=== PATIENT | female | born 1945 | race Caucasian/White ===

== ENCOUNTER → 2017-03-26 | Outpatient (CLI) | payer OTHER ==
[~2017-03-26] MED LIST: ANAS1TAB59 PO; FLUO20CA35 PO; LEVO75TA5 PO; LISI10TA PO; MULT-506 PO; PROB1CAP41 PO; ROSU5TAB PO
[2017-03-26 13:20] VITALS: BP 111/74; PULSE 82; TEMP 36.6; O2SAT 95
--- NOTE | 2017-03-26 14:46 | Radiation Oncology Follow-Up ---
Radiation Oncology Follow-Up Date of Visit Mar 26, 2017. 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 Coleman presented with an abnormal mammogram on 03/23/2015 which showed calcifications in the right breast at 12 o'clock position which has increased compared to the previous examinations. She underwent a unilateral right diagnostic mammogram with ultrasound on 04/04/2015 which did show heterogeneously dense right breast tissue. Spot magnification did show a small 5 mm group of predominantly punctate calcifications in the 12 o'clock position. 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 Tumor was estrogen receptor positive and progesterone receptor positive. The patient was seen by Dr. Angela Keith who recommended lumpectomy which was completed on 05/16/2015. The lumpectomy revealed invasive ductal carcinoma that was histologically grade 2 and measured 8 mm in greatest dimension. The surgical margins for invasive carcinoma were 3 mm from the anterior inferior resection margin and all of the margins were negative for invasive carcinoma. There was also noted to be extensive ductal carcinoma in situ and the margins did extend to the posterior, anterior and inferior margins. Dr. Keith to the patient back to the operating room on 05/30/2015. Reexcision to obtain negative margins and a sentinel lymph node biopsy. Both sentinel lymph nodes were negative. Reexcision only revealed residual ductal carcinoma in situ measuring at least 1.9 cm. Additionally, ductal carcinoma in situ was noted to be less than 1 mm from the inferior and posterior margins. The tumor was reexamined and was noted to be estrogen receptor positive, progesterone receptor positive and HER-[address] Keith did discuss treatment options with the patient including a mastectomy or adjuvant radiation therapy and anterior hormonal therapy. She did explain to the patient that most likely the close margin is due to the location along the posterior chest wall and most likely is not a true positive margin. Dr. Keith did send out an Oncotype DX study which is not come back yet. The patient did see Dr. Alvarez from medical oncology at [facility] who did recommend anti-hormonal therapy and potentially systemic therapy based on the patient's Oncotype DX study. We are now seeing the patient in consultation to discuss role of adjuvant radiation therapy. Currently, the patient is doing relatively well. She is healed up well from surgery. She is satisfied with her outcomes. She has no pain. She will see Dr. Keith on to review her Oncotype DX study. The Oncotype came back score of 6. She return to our office to undergo CT simulation. She was treated with conventional radiation therapy. Her treatment was completed 08/27/2015. She received 6640 cGy Interim History She has been doing well over this past year. She denies any changes to her breast. She's noted no masses or tenderness no change of the axilla. She's had no swelling of her arm. She is up-to-date on mammography. She is on Arimidex and denies side effects. Allergies Coded Allergies: Adhesives (Verified Adverse Reaction, Intermediate, Blisters, 02/18/16) Penicillins (Verified Adverse Reaction, Mild, N/V, 02/18/16) Simvastatin (Verified Adverse Reaction, Mild, MUSCLE/JOINT PAINS, 02/18/16 ) Sulfa Antibiotics (Verified Adverse Reaction, Mild, N/V, 02/18/16) Home Medications Scheduled Anastrozole (Arimidex), 1 MG PO HS Fluoxetine (Prozac), 20 MG PO QAM Levothyroxine Sodium (Levothyroxine Sodium), 1 TAB PO QAM Lisinopril (Prinivil), 10 MG PO QAM Multivitamin (Multivitamin), 1 TAB PO QAM Probiotic Product (Probiotic Daily), 1 CAP PO QAM Rosuvastatin Calcium (Crestor), 10 MG PO QAM Review of Systems Gastrointestinal: Symptoms: WNL Oral: Symptoms: No Problems Other Oral Symptoms: "has had 5 cold sores since " Respiratory: Symptoms: WNL Urinary: Symptoms: WNL Skin: Symptoms: No Problems Breast: Right Upper Arm Measurement: 32.0 Right Mid Arm Measurement: 24.0 Right Wrist Measurement: 15.8 Left Upper Arm Measurement: 31.5 Left Mid Arm Measurement: 23.5 Left Wrist Measurement: 16.5 Arm Dominence: Right Patient Cosmetic Evaluation: Excellent Staff Cosmetic Evalaluation: Excellent Physical Exam Vital Signs Date Time Temp Pulse Resp B/P (MAP) Pulse Ox O2 Delivery O2 Flow Rate FiO2 03/26/17 13:20 36.6 82 16 111/74 95 Fatigue: None General Appearance: no apparent distress Eyes: normal inspection, EOMI ENT: normal ENT inspection, hearing grossly normal Neck: no adenopathy Respiratory/Chest: lungs clear, no respiratory distress, no accessory muscle use Breast: Breast examination reveals well-healed incisions of the right breast. There are no masses or tenderness and no axillary adenopathy. She has no skin retractions or nipple changes. Using the Philadelphia score cosmesis she has a excellent outcome. The left breast showed no masses or tenderness and no axillary adenopathy. Cardiovascular: regular rate, rhythm, no gallop, no murmur Abdomen: non tender, soft Extremities: no pedal edema Neurologic/Psychiatric: no motor/sensory deficits, alert, normal mood/affect Skin: warm/dry Pain Management Patient Reports Pain: No Side: Bilateral Pain Location: None Patient Preferred Pain Scale: 0 - 10 Initial Pain Intensity: 0.0 Pain Management Plan She has no pain therefore requires no pain management. Laboratory Laboratory Results: not applicable Pathology Pathology Results: not applicable Imaging Imaging Studies: were reviewed, and pertinent findings noted below Imaging Comments Date/Time of Imaging Study Study Completed: 09/17/2016 9:41 AM [employer] PACS Image Narrative Comparison is made to images from 03/27/2016 (bilateral) and images from 2015 (right) and images from 05/16/2015 (right) and images from 04/18/2015 and images from 04/04/2015 and images from 03/23/2015 and images from 03/17/2014 and images from 03/15/2013. There is no significant interval change. Right Breast Findings:6 month Follow up The breast is heterogeneously dense (51% - 75% fibroglandular). This may lower the sensitivity of mammography. Patient is post lumpectomy 05/22 and subsequent reexcision for IDC and DCIS and XRT 08/19 and currently taking arimidex.Stable post therapy changes. Stable circumscribed inferior 7:00 middle depth nodule since 2012 and by report 2006. 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 Authenticated By Authenticating Date Authenticating Time Reading Providers(s) TIERRA KELLEY MD 09-17-2016 09:52 TIERRA KELLEY MD IMPRESSION: RIGHT BREAST: Benign, no evidence of malignancy. Normal interval follow-up is recommended in 6 months at time of bilateral exam, screening on the left. OVERALL ASSESSMENT - CATEGORY 2 - BENIGN END OF IMPRESSION Note: Approximately 10% of breast cancers are not detected on mammography. A negative mammographic report should not delay biopsy if a clinically suggestive mass is present. This mammogram has been analyzed with the computer aided detection system. Tomosynthesis was done. This notice contains the results of your recent mammogram, including information about breast density. If your mammogram shows that your breast tissue is dense, you should know that dense breast tissue is a common finding and is not abnormal. Statistics show many women could have dense or highly dense breasts. Dense breast tissue can make it harder to find cancer on a mammogram and may be associated with an increased risk of cancer. This information about the result of your mammogram is given to you to raise your awareness and to inform your conversations with your physician. Together, you can decide which screening options are right for you, based on your mammogram results, individual risk factors or physical examination. A report of your results was sent to your physician. Your mammographic breast density on today's study is described above. There are four categories of breast density on mammography. Fatty breasts and those with scattered fibroglandular tissue are not considered dense. Heterogeneously dense or extremely dense tissue is considered "dense". Please understand that assessment of breast density may vary from year to year. Assessment & Plan Plan: She is scheduled for her next mammogram on 03/31/2017. She continues follow-up with medical oncology at Dr. Alvarez's office. She has a follow-up appointment with Dr. Keith. She continues on the Arimidex. We asked her to return to our office in 1 year. She may call if she has any questions or concerns in the interim. Total Time In Follow-Up I spent 20 minutes speaking to the patient and performing examination. I spent 15 minutes reviewing information in completing this note. Copy To Angela Keith MD; Reyna Alvarez MD; Palmer Martin M.D.
== END | disposition home or self-care (01) ==
LOC: C.ONC 12:39
PROVIDERS: ATTEND Physician Assistant Medical
DX: Z08 Encounter for follow-up examination after completed treatment for malignant neoplasm (principal); Z92.3 Personal history of irradiation; Z85.3 Personal history of malignant neoplasm of breast